=== PATIENT | female | born 1970 | race Two or more races ===

== ENCOUNTER → 2017-03-30 | Outpatient (CLI) | payer OTHER ==
[~2017-03-30] MED LIST: NONE PER PT
[2017-03-30 16:42] LABS: HEMATOCRIT 43.3 % (34.6-47.8); HEMOGLOBIN 14.6 g/dL (11.7-16.4); WHITE BLOOD COUNT 12.5 x10^3/uL (3.4-10)
== END | disposition home or self-care (01) ==
LOC: STAR 15:42
PROVIDERS: ATTEND Obstetrics & Gynecology
DX: Z01.818 Encounter for other preprocedural examination (principal); N93.9 Abnormal uterine and vaginal bleeding, unspecified; N63.10 Unspecified lump in the right breast, unspecified quadrant
CPT/HCPCS: 36415; 84703; 85025